=== PATIENT | female | born 1980 | race Caucasian/White ===

== ENCOUNTER → 2016-12-28 | Outpatient (CLI) | payer BC | LOC: MW.LAB 09:17 | PROVIDERS: ATTEND Dermatology | DX: Z79.899 Other long term (current) drug therapy (principal) | CPT/HCPCS: 36415; 80061; 80076; 84703; 85025 ==

== ENCOUNTER → 2017-01-29 | Outpatient (CLI) | payer BC | END | disposition home or self-care (01) | LOC: MW.LAB 08:02 | PROVIDERS: ATTEND Dermatology | DX: Z79.899 Other long term (current) drug therapy (principal) | CPT/HCPCS: 36415; 80061; 80076; 84703; 85025 ==

== ENCOUNTER 2019-05-03 06:17 | Day surgery (SDC) | payer BC ==
[~2019-05-03 06:17] MED LIST: Lactated Ringers 1,000 ML IV SCH
--- NOTE | 2019-05-03 07:22 | PCM.PREANE ---
Preanesthetic Assessment - Anesthesia/Transfusion/Family Hx Anesthesia History: Prior Anesthesia Without Reaction Family History of Anesthesia Reaction: No Transfusion History: Prior Transfusion Without Reaction Intubation History: Unknown - Review of Systems General: No Symptoms Pulmonary: No Symptoms Cardiovascular: No Symptoms Gastrointestinal: No Symptoms Neurological: No Symptoms Other: Reports: None - Physical Assessment O2 Sat by Pulse Oximetry: 96 Respiratory Rate: 16 Vital Signs: Last Vital Signs Temp 0640 C H 05/03/19 06:45 Pulse 94 05/03/19 06:45 Resp 16 05/03/19 06:45 BP 129/85 05/03/19 06:45 Pulse Ox 96 05/03/19 06:45 Height: 5 ft 5 in Weight: 104.326 kg ASA Class: 2 Mental Status: Alert & Oriented x3 Airway Class: Mallampati = 2 Dentition: Reports: Normal Dentition Thyro-Mental Finger Breadths: 3 Mouth Opening Finger Breadths: 3 ROM/Head Extension: Full Lungs: Clear to Auscultation, Normal Respiratory Effort Cardiovascular: Regular Rate, Regular Rhythm - Allergies Allergies/Adverse Reactions: Allergies Allergy/AdvReac Type Severity Reaction Status Date / Time No Known Allergies Allergy Verified 04/28/19 12:30 - Blood Blood Available: No - Anesthesia Plan Pre-Op Medication Ordered: None - Acknowledgements Anesthesia Type Planned: General Anesthesia Pt an Appropriate Candidate for the Planned Anesthesia: Yes Alternatives and Risks of Anesthesia Discussed w Pt/Guardian: Yes Pt/Guardian Understands and Agrees with Anesthesia Plan: Yes PreAnesthesia Questionnaire HEENT History: Reports: Other (See Below) (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 That was about 4 years ago Gastrointestinal History: Reports: Other (See Below) Other Gastrointestinal History: occasional heartburn- takes TUMS Musculoskeletal History: Reports: Fracture Neurological History: Reports: Other (See Below) Other Neuro History: hx of motion sickness Endocrine/Metabolic History: Reports: Obesity/BMI 30+, Other (See Below) ( borderline DM during ) Hematologic History: Reports: Blood Transfusion(s) - Past Surgical History Head Surgeries/Procedures: Reports: None HEENT Surgical History: Reports: Adenoidectomy, Myringotomy w Tube(s) Female Surgical History: Reports: Hysterectomy Musculoskeletal Surgical History: Reports: ORIF Other Musculoskeletal Surgeries/Procedures:: closed then open reduction left fibula- has hardware - SUBSTANCE USE Smoking Status *Q: Never Smoker Recreational Drug Use History: No - HOME MEDS Home Medications: Home Meds . [No Known Home Meds] 04/28/19 [History] - CURRENT (IN HOUSE) MEDS Current Meds: Current Medications Hydrocodone Bitart/Acetaminophen ([place] 325-5 Mg) 1 - 2 tab PO Q4H PRN PRN Reason: Pain Cefazolin Sodium/Dextrose 2 gm (/ Premix) 50 mls @ 100 mls/hr IV ONCALL CECI Lactated Ringer's (Ringers, Lactated) 1,000 mls @ 100 mls/hr IV ASDIRECTED CECI
[2019-05-03] MEDS ORDERED: Propofol 200 MG/20 ML SDV ONE (07:33)
[2019-05-03] MEDS ORDERED: fentaNYL 100 MCG/2 ML SDV ONE ×2 (07:33→08:42)
[2019-05-03] MEDS ORDERED: Ondansetron 4 MG/2 ML SDV ONE (07:33)
[2019-05-03] MEDS ORDERED: Midazolam 1 MG/ML 2 ML SDV ONE (07:34)
[2019-05-03] MEDS ORDERED: Ketorolac 30 MG/ML SDV ONE (07:34)
[2019-05-03] MEDS ORDERED: Lidocaine 1% 20 ML MDV ONE (07:45)
[2019-05-03] MEDS ORDERED: Acetaminophen/HYDROcodone 325-5 MG Tab PO PRN (08:00)
[2019-05-03] MEDS ORDERED: ceFAZolin 2 GM in Premix Bag 1 BAG IV SCH (08:00)
[2019-05-03] MEDS ORDERED: Sodium Chloride 0.9% 20 ML ONE (08:34)
[2019-05-03] MEDS ORDERED: ceFAZolin 1 GM Vial ONE (08:34)
--- NOTE | 2019-05-03 09:08 | PCM.OPNOTE ---
- General Post-Op/Procedure Note Date of Surgery/Procedure: 05/03/19 Operative Procedure(s): R knee scope with chondroplasty PFJ Post-Op Diagnosis: DJD right knee Anesthesia Technique: General LMA Primary Surgeon: Mishel Alvarez Gospel Singer: Ju Jon in mLs: 5 Condition: Good Free Text/Narrative:: tt= see nursing record #[id number]
[2019-05-03] MEDS ORDERED: fentaNYL 100 MCG/2 ML SDV IVPUSH PRN (09:24)
--- NOTE | 2019-05-03 09:55 | PCM.POSTAN ---
POST ANESTHESIA ASSESSMENT - MENTAL STATUS Mental Status: Alert, Oriented - RESPIRATORY Respiratory Status: Respiratory Rate WNL, Airway Patent, O2 Saturation Stable - CARDIOVASCULAR CV Status: Pulse Rate WNL, Blood Pressure Stable - GASTROINTESTINAL GI Status: No Symptoms - PAIN Pain Score: 1 - POST OP HYDRATION Hydration Status: Adequate & Stable - OBSERVATIONS Free Text/Narrative:: no anesthesia problems
--- NOTE | 2019-05-03 10:59 | OR ---
SURGEON: Mishel Alvarez MD DATE OF PROCEDURE: 05/03/2019 PREOPERATIVE DIAGNOSIS: Right knee loose body. POSTOPERATIVE DIAGNOSES: 1. Right knee loose body. 2. Degenerative joint disease, right knee. PROCEDURE: Right knee arthroscopy with chondroplasty of the patellofemoral joint. PRIMARY SURGEON: Mishel Alvarez MD. PRINCIPAL TECHNICAL WRITER: SKYLAR Yan. ANESTHESIA: General. ESTIMATED BLOOD LOSS: 5 mL. TOURNIQUET TIME: See nursing record. COMPLICATIONS: None. DVT PROPHYLAXIS: Not indicated. IMPLANTS USED: None. BRIEF HISTORY: Laura is a 39-year-old female who has had complaint of intermittent right knee pain and locking. An MRI did show a small 6 mm loose body within the intercondylar notch. Due to her lack of response to conservative treatment, I did recommend surgical intervention. The risks and goals of the procedure were discussed with the patient and were documented preoperatively. She agreed to proceed. DESCRIPTION OF PROCEDURE: The patient was properly identified and brought to the operating room. She was transferred from the OR cart and placed on the operating table in supine position. General anesthesia was administered. After adequate anesthesia was obtained, a well-padded tourniquet was applied to the right lower extremity. The right lower extremity was then prepped in standard fashion using ChloraPrep solution. It was then sterilely draped. A time-out was performed to ensure correct site and procedure. Preoperative antibiotics were given. The surgical site had been marked preoperatively. An Esmarch was used to exsanguinate the right lower extremity and the tourniquet was inflated to 250 mmHg. A lateral portal arthrotomy was established. Blunt trocar and cannula were introduced into the suprapatellar pouch. Camera, inflow, and outflow were assembled. No significant synovitis or loose bodies were noted within the suprapatellar pouch. The patellofemoral joint was then visualized. Extensive degenerative changes were noted. The patella appeared to track centrally. I then extended down the lateral and medial gutter. No loose bodies were identified. I then entered the medial compartment. A medial portal arthrotomy was established. A blunt probe was inserted. She had some minor degenerative fraying along the central portion of the meniscus, which was resected with a combination of biter and shaver. The meniscus was probed and found to be stable. She had diffuse grade 3 chondromalacia along the weightbearing surface of the medial femoral condyle. No loose areas of cartilage were noted. The medial tibial plateau showed diffuse grade 2 degenerative findings. I then entered the notch. Both the ACL and PCL were visualized and probed. A portion of the fat pad was resected for visualization. No loose bodies were identified. I was able to enter the posterolateral aspect of the knee and no loose bodies were present there as well. I then entered the lateral compartment. A small cartilaginous loose body was noted. This was resected with the shaver. The meniscus was then probed and found to be intact. The lateral tibial plateau did show diffuse grade 2 to grade 3 degenerative findings. The lateral femoral condyle showed grade 1-2 degenerative findings. I then re-entered the patellofemoral joint. The trochlear groove did show extensive degenerative wear consistent with grade 3 to grade 4 chondromalacia, which was quite diffuse and measured approximately 20 mm x 30 mm. There was some loose cartilage noted along the lateral aspect of the wear. A ring curette was used to remove the loose flap of cartilage and resected back to a stable edge. A shaver was used to smooth the edge. The undersurface of the patella was then inspected. She had extensive degenerative changes along the medial and central portion of the patella. This was treated with a chondroplasty. Instruments were then removed from the knee. The portal sites were closed with 3-0 nylon. 1% Lidocaine was injected along the portal tracts. Xeroform gauze was placed over the wounds and a bulky dressing was applied. The tourniquet was then deflated. She was awakened from her anesthetic and transferred back to the operating room cart. She was brought to recovery room in stable condition. All needle and sponge counts were correct. GIOVANNI / MODL /[id number]
== END 2019-05-03 11:00 | disposition home or self-care (01) ==
LOC: MW.SDS 06:17
PROVIDERS: ATTEND Orthopaedic Surgery
DX: M23.41 Loose body in knee, right knee (principal); M17.11 Unilateral primary osteoarthritis, right knee; M94.261 Chondromalacia, right knee; M65.861 Other synovitis and tenosynovitis, right lower leg; M19.90 Unspecified osteoarthritis, unspecified site; E66.9 Obesity, unspecified; Z68.38 Body mass index [BMI] 38.0-38.9, adult
CPT/HCPCS: 29880; J0131; J0690; J1885; J2001; J2250; J2405; J2704; J3010; J7120; 01400; 88304

== ENCOUNTER 2019-05-07 09:27 | Emergency (ER) | payer BC ==
--- NOTE | 2019-05-07 09:37 | EDM.PDOC ---
ED HPI GENERAL MEDICAL PROBLEM - General Chief Complaint: Skin Complaint Stated Complaint: RASH RT LEG X 2 DAYS, 4 DAYS POST OP Time Seen by Provider: 05/07/19 09:36 Source of Information: Reports: Patient History Limitations: Reports: No Limitations - History of Present Illness INITIAL COMMENTS - FREE TEXT/NARRATIVE: History of present illness: []Patient had knee arthroscopy by Dr. Alvarez 4 days ago and 2 days ago developed a rash all over the same leg. It is itchy there is multiple bumps she denies any fevers, redness, drainage or increased pain to the knee joint. She has been using topical anti-itch cream that helps for a few hours but itching returns. Review of systems: As per history of present illness and below otherwise all systems reviewed and negative. Past medical history: As per history of present illness and as reviewed below otherwise noncontributory. Surgical history: As per history of present illness and as reviewed below otherwise noncontributory. Social history: No reported history of drug or alcohol abuse. Family history: As per history of present illness and as reviewed below otherwise noncontributory. Physical exam: General: Well developed, well nourished in NAD HEENT: Atraumatic, normocephalic, pupils reactive, negative for conjunctival pallor or scleral icterus, mucous membranes moist, throat clear, neck supple, nontender, trachea midline. Lungs: Clear to auscultation, breath sounds equal bilaterally, chest nontender. Heart: S1S2, regular, negative for clicks, rubs, or JVD. Abdomen: NABS, Soft, nondistended, nontender. Negative for masses or hepatosplenomegaly. Negative for costovertebral tenderness. Pelvis: Stable nontender. Genitourinary: Deferred. Rectal: Deferred. Extremities: port holes intact on the right knee, patient has multiple 1-3 mm raised erythematous lesions with white papule in the center of some lesions, negative for cords or calf pain. Neurovascular unremarkable. Neuro: Awake, alert, oriented. Cranial nerves II through XII unremarkable. Cerebellum unremarkable. Motor and sensory unremarkable throughout. Exam nonfocal. Skin:warm and dry Diagnostics: None Therapeutics: None ED Course: Stable Impression: Allergic reaction: likely to skin cleanser Prescriptions: None Plan: Use Benadryl, ice, topical anti-itch products [id number] follow-up with Dr. Alvarez Definitive disposition and diagnosis as appropriate pending reevaluation and review of above. 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 That was about 4 years ago Gastrointestinal History: Reports: Other (See Below) Other Gastrointestinal History: occasional heartburn- takes TUMS Musculoskeletal History: Reports: Fracture Neurological History: Reports: Other (See Below) Other Neuro History: hx of motion sickness Endocrine/Metabolic History: Reports: Obesity/BMI 30+, Other (See Below) ( borderline DM during ) Hematologic History: Reports: Blood Transfusion(s) - Past Surgical History Head Surgeries/Procedures: Reports: None HEENT Surgical History: Reports: Adenoidectomy, Myringotomy w Tube(s) Female Surgical History: Reports: Hysterectomy Musculoskeletal Surgical History: Reports: ORIF Other Musculoskeletal Surgeries/Procedures:: closed then open reduction left fibula- has hardware ED ROS GENERAL - Review of Systems Review Of Systems: See Below ED EXAM, SKIN/RASH Exam: See Below Course - Vital Signs Last Recorded V/S: Last Vital Signs Temp 97 F 05/07/19 09:36 Pulse 106 H 05/07/19 09:36 Resp 16 05/07/19 09:36 BP 139/82 05/07/19 09:36 Pulse Ox 98 05/07/19 09:36 Departure - Departure Time of Disposition: 09:43 Disposition: Home, Self-Care 01 Condition: Good Clinical Impression: Allergic reaction Qualifiers: Encounter type: initial encounter Qualified Code(s): T78.40XA - Allergy, unspecified, initial encounter - Discharge Information *PRESCRIPTION DRUG MONITORING PROGRAM REVIEWED*: No *COPY OF PRESCRIPTION DRUG MONITORING REPORT IN PATIENT REFUGIO: No Referrals: PCP,Unknown [Primary Care Provider] - Forms: ED Department Discharge Additional Instructions: The following information is given to patients seen in the emergency department who are being discharged to home. This information is to outline your options for follow-up care. We provide all patients seen in our emergency department with a follow-up referral. The need for follow-up, as well as the timing and circumstances, are variable depending upon the specifics of your emergency department visit. If you don't have a primary care physician on staff, we will provide you with a referral. We always advise you to contact your personal physician following an emergency department visit to inform them of the circumstance of the visit and for follow-up with them and/or the need for any referrals to a consulting specialist. The emergency department will also refer you to a specialist when appropriate. This referral assures that you have the opportunity for follow-up care with a specialist. All of these measure are taken in an effort to provide you with optimal care, which includes your follow-up. Under all circumstances we always encourage you to contact your private physician who remains a resource for coordinating your care. When calling for follow-up care, please make the office aware that this follow-up is from your recent emergency room visit. If for any reason you are refused follow-up, please contact the [facility] Emergency Department at and asked to speak to the emergency department charge nurse. [facility] [address] [place] [phone]
== END 2019-05-07 09:51 | disposition home or self-care (01) ==
LOC: MW.ED 09:27
DX: T78.40XA Allergy, unspecified, initial encounter (principal); E66.9 Obesity, unspecified; Z90.710 Acquired absence of both cervix and uterus; Z96.22 Myringotomy tube(s) status
CPT/HCPCS: 99282

== ENCOUNTER 2020-03-21 10:56 | Day surgery (SDC) | payer BC ==
[2020-03-21] MEDS ORDERED: Betamethasone Acetate/Betamethasone Sod Phosphate 30 MG/5 ML MDV EPIDUR ONE (13:30)
[2020-03-21] MEDS ORDERED: Ropivacaine 0.5% 5 MG/ML 30 ML SDV INJECT ONE (13:30)
[2020-03-21] MEDS ORDERED: Iopamidol 200-M 10 ML vial ITHECAL ONE (13:30)
[2020-03-21] MEDS ORDERED: Lidocaine 2% 5 ML SDV INJECT ONE (13:30)
--- NOTE | 2020-03-21 20:19 | OR ---
SURGEON: Kelly Barone D.O. DATE OF PROCEDURE: 03/21/2020 OR STAFF PRESENT: 1. Brittney Bond CRNA. 2. Myke Charles RN. 3. Eryn Wade RT. WOUND CLASS: I. PREOPERATIVE DIAGNOSES: 1. Lumbar L5-S1 degenerative disk disease. 2. Neuroforaminal narrowing. 3. Right lumbosacral radiculopathy. POSTOPERATIVE DIAGNOSES: 1. Lumbar L5-S1 degenerative disk disease. 2. Neuroforaminal narrowing. 3. Right lumbosacral radiculopathy. PROCEDURES PERFORMED: 1. Right transforaminal epidural steroid injection at S1. 2. Fluoroscopic guidance for needle placement. 3. Local with oral Valium for sedation. SCREENING QUESTIONS: The patient answered "no" to all of the following questions: 1. Are you allergic to iodine, Betadine or latex? 2. Do you have a bleeding disorder? 3. Do you have any joint replacements, heart valve replacements, or a pacemaker? 4. Are you allergic to anti-inflammatories or blood thinners? 5. Do you have any current local or systemic infections? DESCRIPTION OF PROCEDURE: The patient had the procedure thoroughly explained including risks, benefits and alternatives. Consent was signed in my clinic indicating understanding and willingness to proceed. The patient presented to [facility] [place] where the patient was escorted to the dressing room to disrobe and change into a hospital gown. Preoperative vital signs were taken and stable. The patient reported that Valium was taken prior to the procedure. The patient was brought to the procedure room and placed in the prone position on the table. A pillow was placed under the abdomen in order to flatten the lumbar lordosis. The back was prepped with ChloraPrep and sterilely draped. All personnel in the operating room were dressed in appropriate attire including surgical scrubs, head and shoe covers. This was to ensure sterility while in the treatment room. During the time fluoroscopy was in use, all personnel in the operating room wore lead morocho with thyroid collars. Sterile technique was used during the procedure. The fluoroscope was placed for the right transforaminal epidural steroid injection. There was no sign of infection at the skin site for needle insertion. The skin was anesthetized with 2% lidocaine with a 27 gauge 1-1/2 inch needle. Then, a 22 gauge 3-1/2 inch spinal needle, advanced to the S1. Under direct fluoroscopic guidance needle position was verified in three views; AP, oblique and lateral, with 0.2 cubic centimeters increments of Isovue-200 dye. No intravascular flow pattern was observed under live fluoroscopy. Then 12 milligrams of Celestone was slowly injected after negative aspiration of heme, cerebrospinal fluid and no paresthesias were noted. The needle was cleared prior to removal from the skin. No adverse reactions were noted. The patient was brought to the recovery room awake and in good condition by my staff. The patient was monitored and discharge instructions were given after a brief stay in the recovery area. Both oral and written discharge and follow up instructions were given. The patient will follow up in the clinic in 3-4 weeks post procedure to evaluate the efficacy. The patient verbalized understanding including understanding of those signs and symptoms that would require emergency care and knows how to contact the office if there are any problems or questions in the meantime. PREOPERATIVE PAIN: 7/10. POSTOPERATIVE PAIN: 0/10. FOLLOWUP: In the Pain Clinic in one month. DELTA / ANASTASIIA /[id number] CLEM
== END 2020-03-21 13:23 | disposition expired ==
LOC: MW.SDS 10:56
PROVIDERS: ATTEND Anesthesiology
DX: G89.4 Chronic pain syndrome (principal); M51.17 Intervertebral disc disorders with radiculopathy, lumbosacral region; M48.07 Spinal stenosis, lumbosacral region; M47.817 Spondylosis without myelopathy or radiculopathy, lumbosacral region; M79.18 Myalgia, other site; E03.9 Hypothyroidism, unspecified; G56.02 Carpal tunnel syndrome, left upper limb; Z88.8 Allergy status to other drugs, medicaments and biological substances
CPT/HCPCS: 64483; J0702; 62323

== ENCOUNTER 2020-04-18 10:59 | Day surgery (SDC) | payer BC ==
[2020-04-18] MEDS ORDERED: Betamethasone Acetate/Betamethasone Sod Phosphate 30 MG/5 ML MDV EPIDUR ONE (12:00)
[2020-04-18] MEDS ORDERED: Lidocaine 2% 5 ML SDV INJECT ONE (12:00)
[2020-04-18] MEDS ORDERED: Iopamidol 200-M 10 ML vial ITHECAL ONE (12:00)
[2020-04-18] MEDS ORDERED: Ropivacaine 0.5% 5 MG/ML 30 ML SDV INJECT ONE (12:00)
--- NOTE | 2020-04-18 16:59 | OR ---
SURGEON: Kelly Barone D.O. DATE OF PROCEDURE: 04/18/2020 PRIMARY SURGEON: Kelly Barone D.O. OR STAFF PRESENT: 1. Myke Baker. 2. Chloe Quiroz. 3. Myke Charles. 4. RT Grace. 5. Brittney Spencer RN. WOUND CLASS: I. PREOPERATIVE DIAGNOSES: 1. Right L5-S1 radiculopathy. 2. Lumbar degenerative disk disease, L4-5 and L5-S1. 3. Chronic low back pain. POSTOPERATIVE DIAGNOSES: 1. Right L5-S1 radiculopathy. 2. Lumbar degenerative disk disease, L4-5 and L5-S1. 3. Chronic low back pain. PROCEDURES PERFORMED: 1. Right S1 transforaminal epidural steroid injection. 2. Fluoroscopic guidance for needle placement. 3. Local with oral Valium for sedation. SCREENING QUESTIONS: The patient answered "no" to all of the following questions: 1. Are you allergic to iodine, Betadine or latex? 2. Do you have a bleeding disorder? 3. Do you have any joint replacements, heart valve replacements, or a pacemaker? 4. Are you allergic to anti-inflammatories or blood thinners? 5. Do you have any current local or systemic infections? MEDICAL NECESSITY: This is a patient with a history of chronic low back pain and lower extremity radicular pain in the above dermatomal pattern that comes in for the above diagnostic and therapeutic procedure. Pertinent positives and negatives for this suspected disease process along with the diagnostic findings and testing are in the patient's history and physical exam. The most salient feature includes radicular pain in the above dermatomal pattern. The patient had failed attempts at conservative therapy including physical therapy, nonsteroidal anti- inflammatory drugs, and other medications. No contraindications to perform this procedure including medical, no bleeding disorders or infections, no psychological, no antisocial personality disorder or active addiction disorder. There are no work-related issues, and, in general, the patient does not have any history of multiple prior interventions, surgeries or nerve blocks which have failed to return the patient to function. The patient's other symptoms to be treated include numbness, paresthesia, dysesthesia or hypoesthesia referred into the left lower extremity or any weakness in the involved myotome. This procedure is being performed in accordance with national guidelines as written by the [employer] (SERJIO). DESCRIPTION OF PROCEDURE: The patient had the procedure thoroughly explained including risks, benefits and alternatives. Consent was signed in my clinic indicating understanding and willingness to proceed. The patient presented to [facility] [place] where the patient was escorted to the dressing room to disrobe and change into a hospital gown. Preoperative vital signs were taken and stable. The patient reported that Valium was taken prior to the procedure. The patient was brought to the procedure room and placed in the prone position on the table. A pillow was placed under the abdomen in order to flatten the lumbar lordosis. The back was prepped with ChloraPrep and sterilely draped. All personnel in the operating room were dressed in appropriate attire including surgical scrubs, head and shoe covers. This was to ensure sterility while in the treatment room. During the time fluoroscopy was in use, all personnel in the operating room wore lead morocho with thyroid collars. Sterile technique was used during the procedure. The fluoroscope was placed for the right S1 transforaminal epidural steroid injection. There was no sign of infection at the skin site for needle insertion. The skin was anesthetized with 2% lidocaine with a 27 gauge 1-1/2 inch needle. Then a 22 gauge 3-1/2 inch spinal needle, advanced to the right S1. Under direct fluoroscopic guidance needle position was verified in three views; AP, oblique and lateral, with 0.2 cubic centimeters increments of Isovue- 200 dye. No intravascular flow pattern was observed under live fluoroscopy. Then 12 milligrams of Celestone was slowly injected after negative aspiration of heme, cerebrospinal fluid and no paresthesias were noted. The needle was cleared prior to removal from the skin. No adverse reactions were noted. The patient was brought to the recovery room awake and in good condition by my staff. The patient was monitored and discharge instructions were given after a brief stay in the recovery area. Both oral and written discharge and follow up instructions were given. The patient will follow up in the clinic in 3-4 weeks post procedure to evaluate the efficacy. The patient verbalized understanding including understanding of those signs and symptoms that would require emergency care and knows how to contact the office if there are any problems or questions in the meantime. PREOPERATIVE PAIN: 5/10. POSTOPERATIVE PAIN: 5/10. FOLLOWUP: In the Pain Clinic in one month. HOGLCHR / MODL /[id number]
== END 2020-04-18 12:55 | disposition home or self-care (01) ==
LOC: MW.SDS 10:59
PROVIDERS: ATTEND Anesthesiology
DX: G89.29 Other chronic pain (principal); M51.16 Intervertebral disc disorders with radiculopathy, lumbar region; M79.18 Myalgia, other site; M47.26 Other spondylosis with radiculopathy, lumbar region; R63.8 Other symptoms and signs concerning food and fluid intake; E03.9 Hypothyroidism, unspecified; M48.061 Spinal stenosis, lumbar region without neurogenic claudication; M17.11 Unilateral primary osteoarthritis, right knee; G56.20 Lesion of ulnar nerve, unspecified upper limb; Z88.8 Allergy status to other drugs, medicaments and biological substances; Z79.899 Other long term (current) drug therapy
CPT/HCPCS: 64483; J0702; J2001; J2795; Q9966

== ENCOUNTER 2021-04-23 10:55 | Emergency (ER) | payer BC ==
--- NOTE | 2021-04-23 11:08 | EDM.PDOC ---
ED HPI GENERAL MEDICAL PROBLEM - General Stated Complaint: SLIP AND FALL Time Seen by Provider: 04/23/21 11:07 Source of Information: Reports: Patient History Limitations: Reports: No Limitations - History of Present Illness INITIAL COMMENTS - FREE TEXT/NARRATIVE: HISTORY AND PHYSICAL: History of present illness: Patient is a 41-year-old female who presents to the emergency room with complaints of lumbar back pain and bilateral knee pain. She states she tripped down 7 steps and landed on her knees. She has a history of a bulged lumbar disc with chronic back pain. She says the way she fell caused her to tense up and "jostle myself around". She does have superficial abrasion to bilateral knees with soft tissue swelling of the right knee. She states her right knee is more bothersome. She is able to weight-bear and ambulate without difficulty. She denies hitting her head or having any loss of consciousness. She denies any urinary or fecal incontinence. Denies any numbness, tingling, saddle paresthesia of distal extremities. Patient denies any fever, chills, headache, change in vision, syncope or near syncope. Denies any chest pain, back pain, shortness of breath or cough. Denies any GI or symptoms. No concern for , hysterectomy. Patient has been eating and drinking appropriately. Review of systems: As per history of present illness and below otherwise all systems reviewed and negative. Past medical history: As per history of present illness and as reviewed below otherwise noncontributory. Surgical history: As per history of present illness and as reviewed below otherwise noncontributory. Social history: See social history for further information Family history: As per history of present illness and as reviewed below otherwise noncontributory. Physical exam: General: Well developed and well nourished 41 year old female. Alert and orientated x 3. Nontoxic in appearance and in no acute distress. Vital signs are stable and have been reviewed by me. Nursing notes were reviewed. HEENT: Atraumatic, normocephalic, pupils equal and reactive bilaterally, negative for conjunctival pallor or scleral icterus, mucous membranes moist, TMs normal bilaterally, throat clear, neck supple, nontender, trachea midline. No drooling or trismus noted. No meningeal signs. No hot potato voice noted. Lungs: Clear to auscultation bilaterally. No wheezes, rales, or rhonchi. Chest nontender. Normal work of breathing, no accessory muscles used. Heart: S1S2, regular rate and rhythm without overt murmur, gallops, or rubs. No JVD. No peripheral edema Abdomen: Soft, nondistended, nontender. Normoactive bowel sounds. Negative for masses or costovertebral tenderness. Pelvis: Stable nontender. C-spine/Back: No pinpoint vertebral tenderness upon palpation. No crepitus, step-offs or obvious deformities. Patient is ambulatory into the emergency room without difficulty or deficit. Able to rock back on heels and walk on toes. Denies any urinary or fecal incontinence. Denies any numbness, tingling or saddle paresthesia. No concerns of serious infection, fracture or cord compression, or cauda equina syndrome. Deep tendon reflexes brisk bilaterally. Skin: Intact, warm, dry. No lesions or rashes noted. Hematologic: No petechiae or purpra. Mucosa appropriate color and normal nail bed color and refill. Extremities: Atraumatic, moves all extremities per self without difficulty or deficits, negative for cords or calf pain. Neurovascular unremarkable. Neuro: Awake, alert, oriented. Cranial nerves II through XII unremarkable. Cerebellum unremarkable. Motor and sensory unremarkable throughout. Exam nonfocal. Psychiatric: Mood and affect are appropriate. Normal thought process. Answering questions appropriately. Notes: *This patient was seen and evaluated during the 2019 SARS-CoV-2 novel coronavirus pandemic period. Community viral transmission is ongoing at time of this encounter and the emergency department is operating under pandemic response procedures. Patient is a 41-year-old female who presents to the emergency room with complaints of right knee and lumbar back pain post fall. She denies hitting her head or having any loss of consciousness. My physical exam shows some right paraspinous muscular tenderness on palpation. She does have some soft tissue swelling and tenderness to the anterior right knee as well. Remaining exam is unremarkable. No neuro deficits noted. Her tetanus is up-to-date. We discussed imaging, will move forward with a lumbar and right knee x-ray. She did drive herself today, is willing/agreeable of a Toradol IM shot. Knee x-ray shows marked prepatellar soft tissue swelling with mild to moderate tricompartmental degenerative changes. No evidence of displaced fracture. Lumbar spine shows [id number] multilevel degenerative changes of the lumbar spine without acute osseous abnormality. I have talked with the patient about today's findings, in addition to providing specific details for plan of care. Patient states she has crutches at home. I will give her an Lance wrap for compression of the right knee. Reassessment at the time of disposition demonstrates that the patient is in no acute distress. The patient is stable for discharge, counseling was provided and we discussed in great detail signs and symptoms that would prompt them to return to the Emergency Department. She states she does see the painter hand, has been trying today to get an injection for pain management. She states she does not like taking strong pain medications, reporting they make her ill. We will do a short course of Toradol to be taken as needed as she has taken this in the past without any problems. Medication, follow up and supportive care measures were reviewed and discussed. Voices understanding and is agreeable to plan of care. Denies any further questions or concerns at this time. Diagnostics: Lumbar x-ray, right knee x-ray Therapeutics: Toradol IM Prescription: Toradol Impression: Fall Acute on chronic lumbar back pain Right knee contusion Plan: 1. You were evaluated today on an emergent basis. Your x-ray shows no acute fractures or dislocations. Rest, ice, elevate the extremity as able. You may want to apply compression to the knee to help with the soft tissue swelling. 2. You can alternate Tylenol and ibuprofen as needed for pain and fever management. 3. We encourage you to follow up with your primary care provider and/or recommended specialist in the next few days for re-evaluation and further care/management. 4. If your symptoms should worsen, new symptoms develop or any of the signs and symptoms we discussed should arise please return to the emergency room or call 911 (if needed). Definitive disposition and diagnosis as appropriate pending reevaluation and review of above. back Pain Score (Numeric/FACES): 5 - Related Data Allergies Allergy/AdvReac Type Severity Reaction Status Date / Time chlorhexidine Allergy Rash Verified 04/23/21 11:26 Chloraprep Allergy Rash Uncoded 04/23/21 11:26 Home Meds: Home Meds Ketorolac [Toradol] 10 mg PO TID PRN #15 tab 04/23/21 [Rx] Metoprolol Succinate 25 mg PO DAILY 04/23/21 [History] metFORMIN [Glucophage] 500 mg PO BID 04/23/21 [History] methocarbamoL [Methocarbamol] 750 mg PO BID 04/23/21 [History] Past Medical History HEENT History: Reports: Other (See Below) Other HEENT History: wears glasses/contacts Respiratory History: Reports: TB Other Respiratory History: hx of dormant TB, 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 That was about 4 years ago Gastrointestinal History: Reports: Other (See Below) Other Gastrointestinal History: occasional heartburn- takes TUMS Musculoskeletal History: Reports: Fracture Neurological History: Reports: Other (See Below) Other Neuro History: hx of motion sickness Endocrine/Metabolic History: Reports: Obesity/BMI 30+, Other (See Below) Hematologic History: Reports: Blood Transfusion(s) - Infectious Disease History Infectious Disease History: Reports: Chicken Pox - Past Surgical History Head Surgeries/Procedures: Reports: None HEENT Surgical History: Reports: Adenoidectomy, Myringotomy w Tube(s) Female Surgical History: Reports: Hysterectomy Musculoskeletal Surgical History: Reports: Arthroscopic Knee, ORIF Other Musculoskeletal Surgeries/Procedures:: closed then open reduction left fibula- has hardware Social & Family History - Family History Family Medical History: No Pertinent Family History - Caffeine Use Caffeine Use: Reports: None Review of Systems - Review of Systems Review Of Systems: Comprehensive ROS is negative, except as noted in HPI. ED EXAM, GENERAL - Physical Exam Exam: See Below (See dictation) Course - Vital Signs Last Recorded V/S: Last Vital Signs Temp 97.3 F 04/23/21 11:22 Pulse 104 H 04/23/21 11:22 Resp BP 121/82 04/23/21 11:22 Pulse Ox 97 04/23/21 11:22 - Orders/Labs/Meds Orders: Active Orders 24 hr Category Date Time Status DME for Discharge [COMM] Stat Oth 04/23/21 12:38 Ordered Meds: Medications Discontinued Medications Generic Name Dose Route Start Last Admin Trade Name Freq PRN Reason Stop Dose Admin Ketorolac Tromethamine 60 mg 04/23/21 11:18 04/23/21 11:49 Ketorolac 60 Mg/2 Ml Sdv IM 04/23/21 11:19 60 mg ONETIME ONE Administration Departure - Departure Time of Disposition: 12:40 Disposition: Home, Self-Care 01 Clinical Impression: Acute exacerbation of chronic low back pain Fall Qualifiers: Encounter type: initial encounter Qualified Code(s): W19.XXXA - Unspecified fall, initial encounter Contusion of knee, right Qualifiers: Encounter type: initial encounter Qualified Code(s): S80.01XA - Contusion of right knee, initial encounter - Discharge Information Prescriptions: Ketorolac [Toradol] 10 mg PO TID PRN #15 tab PRN Reason: Pain Instructions: Contusion, [id number] Referrals: PCP,None [Primary Care Provider] - Forms: ED Department Discharge Additional Instructions: The following information is given to patients seen in the emergency department who are being discharged to home. This information is to outline your options for follow-up care. We provide all patients seen in our emergency department with a follow-up referral. The need for follow-up, as well as the timing and circumstances, are variable depending upon the specifics of your emergency department visit. If you don't have a primary care physician on staff, we will provide you with a referral. We always advise you to contact your personal physician following an emergency department visit to inform them of the circumstance of the visit and for follow-up with them and/or the need for any referrals to a consulting specialist. The emergency department will also refer you to a specialist when appropriate. This referral assures that you have the opportunity for follow-up care with a specialist. All of these measure are taken in an effort to provide you with optimal care, which includes your follow-up. Under all circumstances we always encourage you to contact your private physician who remains a resource for coordinating your care. When calling for follow-up care, please make the office aware that this follow-up is from your recent emergency room visit. If for any reason you are refused follow-up, please contact the [facility] Emergency Department at and asked to speak to the emergency department charge nurse. [facility] [address] [place] [address] [address] Thank you for choosing the [facility] emergency department in [place] for your medical needs today. It was a pleasure caring for you. Today you were seen in the emergency department for fall and injuries. 1. You were evaluated today on an emergent basis. Your x-ray shows no acute fractures or dislocations. Rest, ice, elevate the extremity as able. You may want to apply compression to the knee to help with the soft tissue swelling. 2. You can alternate Tylenol and ibuprofen as needed for pain and fever management. 3. We encourage you to follow up with your primary care provider and/or recommended specialist in the next few days for re-evaluation and further care/management. 4. If your symptoms should worsen, new symptoms develop or any of the signs and symptoms we discussed should arise please return to the emergency room or call 911 (if needed). Sepsis Event Note (ED) - Focused Exam Vital Signs: Vital Signs Temp Pulse BP Pulse Ox 04/23/21 11:22 97.3 F 104 H 121/82 97 - My Orders Last 24 Hours: My Active Orders 04/23/21 12:38 DME for Discharge [COMM] Stat - Assessment/Plan Last 24 Hours: My Active Orders 04/23/21 12:38 DME for Discharge [COMM] Stat
[2021-04-23] MEDS ORDERED: Ketorolac 60 MG/2 ML SDV IM ONE (11:18)
--- NOTE | 2021-04-23 12:21 | CR ---
Indication: Pain Comparison: None available. Technique: Standing AP, lateral, and sunrise views right knee were obtained Findings: There is no displaced fracture or dislocation. There is moderate degenerative changes of the tricompartmental joint space worse in the medial compartment with minimal tibial spine spurring. There is marked prepatellar soft tissue swelling. Impression: Marked prepatellar soft tissue swelling with mild to moderate tricompartmental degenerative changes. No evidence of displaced fracture. Dictated by Wade Hong MD @ 04/23/2021 12:20:[address] Wade Hong @ Apr 23 2021 12:20PM
--- NOTE | 2021-04-23 12:27 | CR ---
Indication: Pain Comparison: None available. Technique: AP and lateral views lumbar spine were obtained Findings: The lumbar vertebral body heights are grossly maintained with straightening of the normal sagittal lordosis and mild dextroscoliotic deformity of the AP alignment. There is mild to moderate multilevel degenerative disc disease with marginal osteophyte formation. There is moderate facet arthrosis. The soft tissues are unremarkable. Impression: [id number] multilevel degenerative changes of the lumbar spine without acute osseous abnormality. Dictated by Wade Hong MD @ 04/23/2021 12:26:[address] Wade Hong @ Apr 23 2021 12:26PM
== END 2021-04-23 13:06 | disposition home or self-care (01) ==
LOC: MW.ED 10:55
DX: S80.01XA Contusion of right knee, initial encounter (principal); G89.29 Other chronic pain; M54.5 Low back pain; E66.9 Obesity, unspecified; Z68.38 Body mass index [BMI] 38.0-38.9, adult; Z79.84 Long term (current) use of oral hypoglycemic drugs; Z88.5 Allergy status to narcotic agent; Z88.8 Allergy status to other drugs, medicaments and biological substances; W10.9XXA Fall (on) (from) unspecified stairs and steps, initial encounter
CPT/HCPCS: 72100; 73562; 96372; 99283; J1885

== ENCOUNTER 2024-02-23 06:34 | Emergency (ER) | payer BC ==
[2024-02-23 07:22] LABS: BASOPHILS ABSOLUTE AUTO 0.03 K/uL (0.00-0.20); BASOPHILS PERCENT AUTO 0.2 % (0.0-1.0); EOSINOPHILS ABSOLUTE AUTO 0.12 K/uL (0.00-0.45); EOSINOPHILS PERCENT AUTO 0.9 % (0.0-6.0); HEMATOCRIT 42.7 % (37.0-47.0); IMMATURE GRAN ABSOLUTE AUTO 0.05 K/uL (0.00-0.05); IMMATURE GRAN PERCENT AUTO 0.4 % (0.0-0.4); LYMPHOCYTES ABSOLUTE AUTO 3.09 K/uL (1.00-4.80); LYMPHOCYTES PERCENT AUTO 24.4 % (24.0-44.0); MEAN CORPUSCULAR HEMOGLOBIN 27.5 pg (28.0-32.0); MEAN CORPUSCULAR HGB CONC 32.8 g/dL (32.0-36.0); MEAN CORPUSCULAR VOLUME 83.7 fL (83.0-99.0); MEAN PLATELET VOLUME 8.9 fL (9.4-12.3); MONOCYTES ABSOLUTE AUTO 0.76 K/uL (0.00-0.80); NEUTROPHILS ABSOLUTE AUTO 8.59 K/uL (1.80-7.70); NEUTROPHILS PERCENT AUTO 68.1 % (41.0-71.0); PLATELET COUNT,PLT 293 K/uL (150-400); WHITE BLOOD CELL COUNT,WBC 12.64 K/uL (3.9-11.3)
[2024-02-23 07:25] LABS: APPEARANCE,URINE CLEAR; BILIRUBIN,URINE NEGATIVE (NEGATIVE); COLOR,URINE YELLOW; GLUCOSE,URINE NEGATIVE (NEGATIVE); KETONES,URINE NEGATIVE (NEGATIVE); LEUKOCYTE ESTERASE,URINE LARGE (NEGATIVE); NITRITE,URINE NEGATIVE (NEGATIVE); OCCULT BLOOD,URINE TRACE-INTACT (NEGATIVE); PROTEIN,URINE NEGATIVE (NEGATIVE); UROBILINOGEN,URINE 0.2 EU/dL (<2.0)
[2024-02-23 07:39] LABS: RBC,URINE 0-1 (0-2/HPF)
[2024-02-23 07:40] LABS: BACTERIA,URINE FEW (NEGATIVE); EPITHELIAL CELLS,URINE MODERATE (NONE-FEW)
[2024-02-23 07:53] LABS: A/G RATIO 0.9 (0.9-1.6); ALBUMIN 3.7 g/dL (3.4-5.0); BILIRUBIN TOTAL 0.4 mg/dL (0.2-1.0); CARBON DIOXIDE,CO2 26.8 mmol/L (21.0-32.0); CREATININE 0.9 mg/dL (0.6-1.0); EST CRCL DRUG DOSING (CG) 71.78 mL/min; POTASSIUM,K 4.3 mmol/L (3.5-5.1)
[2024-02-23 07:56] LABS: LACTIC ACID 0.7 mmol/L (0.4-2.0)
[2024-02-23] MEDS: Sodium Chloride 0.9% 1,000 ML IV ONE (08:10)
[2024-02-23] MEDS: Sodium Chloride 0.9% 10 ML Syringe FLUSH PRN (08:16)
[2024-02-23] MEDS: Ketorolac 30 MG/ML SDV IVPUSH ONE (08:16)
[2024-02-23] MEDS: Sodium Chloride 0.9% 2.5 ML Syringe FLUSH PRN (08:16)
== END 2024-02-23 10:24 | disposition home or self-care (01) ==
LOC: MW.ED 06:34
DX: K59.00 Constipation, unspecified (principal); Z75.8 Other problems related to medical facilities and other health care; Z88.8 Allergy status to other drugs, medicaments and biological substances; Z79.899 Other long term (current) drug therapy; Z86.19 Personal history of other infectious and parasitic diseases
CPT/HCPCS: 36415; 51798; 80053; 81001; 81025; 83605; 83690; 85025; 87086; 93005; 96374; 99284; J1885; J3490; J7030; 93010

== ENCOUNTER 2024-09-26 07:21 | Day surgery (SDC) | payer BC ==
[~2024-09-26 07:21] MED LIST changes: -Lactated Ringers 1,000 ML IV SCH; +Sodium Chloride 0.9% 10 ML Syringe FLUSH PRN; +Sodium Chloride 0.9% 2.5 ML Syringe FLUSH PRN; +Sodium Chloride 0.9% 20 ML SDV IV PRN
[2024-09-26] MEDS: Lactated Ringers 1,000 ML IV SCH (07:45)
[2024-09-26] MEDS ORDERED: propofoL 500 MG/50 ML 50 ML ONE (09:43)
== END 2024-09-26 11:03 | disposition home or self-care (01) ==
LOC: MW.SDS 07:21
PROVIDERS: ATTEND Surgery
DX: Z12.11 Encounter for screening for malignant neoplasm of colon (principal); D12.0 Benign neoplasm of cecum; K21.9 Gastro-esophageal reflux disease without esophagitis; I10 Essential (primary) hypertension; E11.9 Type 2 diabetes mellitus without complications; E78.5 Hyperlipidemia, unspecified; E03.9 Hypothyroidism, unspecified; Z79.85 Long-term (current) use of injectable non-insulin antidiabetic drugs; Z79.899 Other long term (current) drug therapy; Z88.8 Allergy status to other drugs, medicaments and biological substances
CPT/HCPCS: 45380; J2704; J7120; 00811